=== PATIENT | male | born 1950 | race Caucasian/White ===

== ENCOUNTER 2022-09-17 23:03 | Emergency (ER) | payer OTHER ==
[~2022-09-17] VITALS: Ht 175.3 cm; Wt 79.4 kg
[2022-09-18] MEDS ORDERED: Lisinopril2.5 MG (01:36)
== END 2022-09-18 02:21 | disposition home or self-care (01) ==
LOC: ER 23:03
DX: R55 Syncope and collapse (principal); E86.0 Dehydration; T78.1XXA Other adverse food reactions, not elsewhere classified, initial encounter; I10 Essential (primary) hypertension; F17.210 Nicotine dependence, cigarettes, uncomplicated; Z79.899 Other long term (current) drug therapy
CPT/HCPCS: 84484; 93005; 93010; J2543